=== PATIENT | female | born 1940 | race Caucasian/White ===

== ENCOUNTER → 2017-12-14 | Outpatient (CLI) | payer MEDICARE, OTHER ==
[~2017-12-14] MED LIST: BP MED PO; CITA20 PO; GABA100 PO; Glucophage1000 MG PO; HYDR1TAB94; HYDR1TAB94 PO; IRON150C; IRON325 MG PO; LOSA25 PO; METF500C PO; Mirapex0.125 MG PO; OMEP20ER; PRAM.125 PO; PRAMIPEXOLE DIHY1 MG PO; SITA25T2 PO
[2017-12-14 09:29] LABS: BASOPHILS ABSOLUTE AUTO 0.05 K/mm3 (0.00-0.23); BASOPHILS PERCENT AUTO 1 % (0-2); EOSINOPHILS ABSOLUTE AUTO 0.15 K/mm3 (0.00-0.68); EOSINOPHILS PERCENT AUTO 2 % (0-6); Hematocrit 38.9 % (33.0-51.0); Hemoglobin 11.3 g/dL (11.5-16.0); IMMATURE GRAN ABSOLUTE AUTO 0.07 K/mm3 (0.00-0.10); IMMATURE GRAN PERCENT AUTO 1 % (0-1); LYMPHOCYTES ABSOLUTE AUTO 1.79 K/mm3 (0.84-5.20); LYMPHOCYTES PERCENT AUTO 23 % (21-46); MONOCYTES ABSOLUTE AUTO 0.49 K/mm3 (0.16-1.47); MONOCYTES PERCENT AUTO 6 % (4-13); Mean Corpuscular Volume 72 fL (80-100); NEUTROPHILS PERCENT AUTO 67 % (41-73); Platelet Count 448 K/mm3 (150-400); RDW Coefficient Variation 17.2 % (11.7-14.2); RDW Standard Deviation 43.2 fL (35.1-46.3); Red Blood Cell Count 5.37 M/mm3 (3.80-5.20); White Blood Cell Count 7.75 K/mm3 (4.00-11.30)
[2017-12-14 09:44] LABS: Albumin, Blood 3.1 g/dL (3.4-5.0); Albumin/Globulin Ratio 0.6 (0.8-1.8); Bilirubin, Total 0.3 mg/dL (0.1-1.0); Bun/Creatinine Ratio 15.2 (12.0-20.0); Calcium, Blood 9.4 mg/dL (8.5-10.1); Creatinine, Blood 1.05 mg/dL (0.40-1.00); Free Thyroxine 1.21 ng/dL (0.70-1.60); Globulin, Blood 5.6 g/dL (2.2-4.0); Potassium, Blood 4.6 mmol/L (3.5-5.5); Thyroid Stimulating Hormone 2.581 uIU/mL (0.360-4.800); Total Protein, Blood 8.7 g/dL (6.4-8.2)
[2017-12-14 13:55] LABS: Percent Saturation 5.7 % (15.0-50.0)
== END ==
LOC: LAB SHORT 09:21
PROVIDERS: General Practice
DX: E11.65 Type 2 diabetes mellitus with hyperglycemia (principal); R53.81 Other malaise; D64.9 Anemia, unspecified
CPT/HCPCS: 80053; 83540; 83550; 83880; 84439; 84443; 85025

== ENCOUNTER → 2018-08-19 | Outpatient (CLI) | payer MEDICARE, OTHER | LOC: LAB EV 11:52 → LAB SHORT 11:52 | DX: L02.91 Cutaneous abscess, unspecified (principal) | CPT/HCPCS: 87070; 87075; 87205 ==

== ENCOUNTER 2018-12-14 22:10 | Emergency (ER) | payer MEDICARE, OTHER ==
[~2018-12-14] VITALS: Ht 160 cm; Wt 90.7 kg
[~2018-12-14 22:10] MED LIST changes: +BASAGLAR K100 UNIT/1; +BASAGLAR K100 UNIT/1 SC; +JANUMET XR 50-1 EAC1; +Janumet 50-1,01 EACH PO; +LOSARTAN POTAS100 MG PO; +MELATONIN5 M1 PO; -Mirapex0.125 MG PO; +OMEPRAZOLE MAGN20 MG PO; +SERT50 PO
[2018-12-14 23:05] LABS: Source, Urine Clean Catch
[2018-12-14 23:12] LABS: Bilirubin, Urine Neg (Neg); Blood, Urine 1+ (Neg); Glucose Qualitative, Urine 4+ (Neg); Ketones, Urine Neg (Neg); Leukocyte Esterase, Urine 2+ (Neg); Nitrite, Urine Pos (Neg); Protein, Urine Neg (Neg); Urobilinogen, Urine NORM (Normal)
[2018-12-14 23:19] LABS: Appearance, Urine Clear (Clear); Color, Urine Yellow (P-Yellow)
[2018-12-14 23:20] LABS: Bacteria Mod /hpf; Red Blood Cells, Urine 0-2 /hpf (0-2); Squamous Epithelial Cells Rare /hpf (Few); White Blood Cells, Urine 0-2 /hpf (0-5); Yeast/Fungi Urine Rare /hpf
[2018-12-14] MEDS ORDERED: Neurontin 300300 MG PO (23:48)
[2018-12-14] MEDS ORDERED: PRAMIPEXOLE DIHY1 MG PO (23:48)
[2018-12-15] MEDS ORDERED: Keflex500 MG PO (00:54)
[2018-12-17] MEDS ORDERED: Aspirin EC81 MG PO (16:44)
[2018-12-17] MEDS ORDERED: LIDO700A20 TOP (16:44)
== END 2018-12-15 01:27 | disposition home or self-care (01) ==
LOC: ER 22:10
PROVIDERS: Emergency Medicine
DX: N39.0 Urinary tract infection, site not specified (principal); B37.3 Candidiasis of vulva and vagina; Z79.899 Other long term (current) drug therapy; Z79.4 Long term (current) use of insulin; E11.40 Type 2 diabetes mellitus with diabetic neuropathy, unspecified; K21.9 Gastro-esophageal reflux disease without esophagitis
CPT/HCPCS: 70450; 81001; 87077; 87086; 87186; 99283-25

== ENCOUNTER 2018-12-18 07:28 | Inpatient (IN) | payer MEDICARE, OTHER ==
[~2018-12-18] VITALS: Ht 157.5 cm; Wt 92.0 kg
[~2018-12-18 07:28] MED LIST changes: +Aspirin EC81 MG PO; +Keflex500 MG PO; +LIDO700A20 TOP; +Neurontin 300300 MG PO
[2018-12-18 08:00] LABS: BASOPHILS ABSOLUTE AUTO 0.05 K/mm3 (0.00-0.23); BASOPHILS PERCENT AUTO 1 % (0-2); EOSINOPHILS ABSOLUTE AUTO 0.21 K/mm3 (0.00-0.68); EOSINOPHILS PERCENT AUTO 3 % (0-6); Hematocrit 38.6 % (33.0-51.0); Hemoglobin 11.1 g/dL (11.5-16.0); IMMATURE GRAN ABSOLUTE AUTO 0.03 K/mm3 (0.00-0.10); IMMATURE GRAN PERCENT AUTO 1 % (0-1); LYMPHOCYTES ABSOLUTE AUTO 1.63 K/mm3 (0.84-5.20); LYMPHOCYTES PERCENT AUTO 26 % (21-46); MONOCYTES PERCENT AUTO 10 % (4-13); Mean Corpuscular HGB 22.4 pg (26.0-34.0); Mean Corpuscular HGB Conc 28.8 g/dL (31.5-36.5); Mean Corpuscular Volume 78 fL (80-100); Mean Platelet Volume 11.5 fL (9.1-12.4); NEUTROPHILS ABSOLUTE AUTO 3.68 K/mm3 (1.96-9.15); NEUTROPHILS PERCENT AUTO 59 % (41-73); Platelet Count 289 K/mm3 (150-400); RDW Coefficient Variation 15.3 % (11.7-14.2); RDW Standard Deviation 42.8 fL (35.1-46.3); Red Blood Cell Count 4.95 M/mm3 (3.80-5.20)
[2018-12-18 08:23] LABS: Alanine Aminotransfer (ALT/SGP 22 U/L (12-78); Albumin, Blood 3.1 g/dL (3.4-5.0); Albumin/Globulin Ratio 0.8 (0.8-1.8); Alk Phos 113 U/L (50-136); Anion Gap 8 mmol/L (6-16); Aspartate Aminotrans (AST/SGOT 18 U/L (12-37); Bilirubin, Total 0.2 mg/dL (0.1-1.0); Blood Urea Nitrogen 17 mg/dL (8-24); Bun/Creatinine Ratio 24.8 (12.0-20.0); CO2, Blood 25 mmol/L (21-32); Calcium, Blood 8.4 mg/dL (8.5-10.1); Chloride, Blood 102 mmol/L (98-108); Creatinine, Blood 0.69 mg/dL (0.40-1.00); Ethanol (Alcohol), Blood, Med <3 mg/dL; Glomerular Filtration Rate >60 (60-); Glucose, Blood 527 mg/dL (70-99); Potassium, Blood 4.4 mmol/L (3.5-5.5); Sodium, Blood 135 mmol/L (136-145); Total Protein, Blood 7.1 g/dL (6.4-8.2)
[2018-12-18 08:28] LABS: Base Excess Venous 1.7 mmol/L; Bicarbonate Venous 25.3 mmol/L (24.0-30.0); PCO2 Venous 45.1 mmHg (38-42); PO2 Venous 51.9 mmHg (38-42); pH Blood Venous 7.38 (7.34-7.37)
[2018-12-18 09:55] LABS: Source, Urine Clean Catch
[2018-12-18 10:03] LABS: Bilirubin, Urine Neg (Neg); Blood, Urine 2+ (Neg); Glucose Qualitative, Urine 4+ (Neg); Ketones, Urine 1+ (Neg); Leukocyte Esterase, Urine Neg (Neg); Nitrite, Urine Neg (Neg); Protein, Urine Neg (Neg); Specific Gravity, Urine 1.005 (1.003-1.022); Urobilinogen, Urine NORM (Normal)
[2018-12-18 10:19] LABS: Appearance, Urine Clear (Clear); Color, Urine Yellow (P-Yellow)
[2018-12-18 10:20] LABS: Bacteria Not Seen /hpf; Red Blood Cells, Urine 0-2 /hpf (0-2); Squamous Epithelial Cells Not Seen /hpf (Few); White Blood Cells, Urine Not Seen /hpf (0-5); Yeast/Fungi Urine Not Seen /hpf
[2018-12-18] MEDS ORDERED: PRAMIPEXOLE DIHY1 MG PO (12:40)
[2018-12-18] MEDS ORDERED: METO25ER PO (14:13)
[2018-12-18] MEDS ORDERED: ASPI81CH PO (15:35)
[2018-12-18] MEDS ORDERED: LIDO700A20 TOP (15:36)
--- NOTE | 2018-12-18 18:22 | NUR ---
SHIFT SUMMARY. 1400 PT ADMITTED TO MEDICAL FLOOR VIA GURNEY, PT TRANSFERED TO BED WITH CGA. A&OX4, PT DID HAVE DIFFICULTY WITH WHEN AWOKEN AT ONE POINT ALTHOUGH WAS ABLE TO RECALL WITH PROMPTING. ECHO ORDERED FOR AM. PT HAD TWO FALLS IN THE PAST 3 DAYS, PT REPORTED FALLING ON R SIDE. C/O PAIN TO R RIBS, NO BRUSING OBSERVED. PRN APAP GIVEN WITH GOOD RELIEF. FINE CRACKLES IN L LOWER LOBE, CXR IN AM. PT WITH HEMATOMA TO R FA, SCATTERED BRUISING TO BUE.
--- NOTE | 2018-12-18 19:22 | NUR ---
PT HAD DIFFICUTLY WITH COORDINATION WHILE FEEDING HERSELF DINNER. PT WOULD EAT WITH SPOON IN R HAND AND MISS TO THE RIGHT OF HER MOUTH. PT BECAME TEARFUL AND APPEARED FRIGHTNED WITH THESE SYMPTOMS. THERAPEUTIC COMMUNICATION AND EMOTIONAL SUPPORT GIVEN.
[2018-12-19 05:03] LABS: BASOPHILS ABSOLUTE AUTO 0.05 K/mm3 (0.00-0.23); BASOPHILS PERCENT AUTO 1 % (0-2); EOSINOPHILS ABSOLUTE AUTO 0.24 K/mm3 (0.00-0.68); EOSINOPHILS PERCENT AUTO 3 % (0-6); Hematocrit 37.2 % (33.0-51.0); Hemoglobin 10.8 g/dL (11.5-16.0); IMMATURE GRAN ABSOLUTE AUTO 0.03 K/mm3 (0.00-0.10); IMMATURE GRAN PERCENT AUTO 0 % (0-1); LYMPHOCYTES ABSOLUTE AUTO 2.09 K/mm3 (0.84-5.20); LYMPHOCYTES PERCENT AUTO 29 % (21-46); MONOCYTES ABSOLUTE AUTO 0.65 K/mm3 (0.16-1.47); MONOCYTES PERCENT AUTO 9 % (4-13); Mean Corpuscular HGB 22.4 pg (26.0-34.0); Mean Corpuscular Volume 77 fL (80-100); Mean Platelet Volume 11.9 fL (9.1-12.4); NEUTROPHILS ABSOLUTE AUTO 4.05 K/mm3 (1.96-9.15); NEUTROPHILS PERCENT AUTO 57 % (41-73); Platelet Count 270 K/mm3 (150-400); RDW Coefficient Variation 15.4 % (11.7-14.2); RDW Standard Deviation 42.3 fL (35.1-46.3); Red Blood Cell Count 4.82 M/mm3 (3.80-5.20); White Blood Cell Count 7.11 K/mm3 (4.00-11.30)
[2018-12-19 05:25] LABS: Alanine Aminotransfer (ALT/SGP 22 U/L (12-78); Albumin, Blood 2.9 g/dL (3.4-5.0); Albumin/Globulin Ratio 0.7 (0.8-1.8); Alk Phos 101 U/L (50-136); Anion Gap 8 mmol/L (6-16); Aspartate Aminotrans (AST/SGOT 13 U/L (12-37); Bilirubin, Total 0.4 mg/dL (0.1-1.0); Blood Urea Nitrogen 13 mg/dL (8-24); CO2, Blood 25 mmol/L (21-32); Calcium, Blood 8.3 mg/dL (8.5-10.1); Chloride, Blood 104 mmol/L (98-108); Creatinine, Blood 0.59 mg/dL (0.40-1.00); Glomerular Filtration Rate >60 (60-); Glucose, Blood 352 mg/dL (70-99); Potassium, Blood 3.9 mmol/L (3.5-5.5); Sodium, Blood 137 mmol/L (136-145); Total Protein, Blood 6.9 g/dL (6.4-8.2)
--- NOTE | 2018-12-19 05:52 | NUR ---
SHIFT SUMMARY PT SLEPT WELL T/O NIGHT. AOX2-UNAWARE WHERE IN [place] SHE IS OR THE DATE, STATES SHE GETS PERIODS OF CONFUSION THAT COME & GO WHERE SHE FORGETS THINGS. FOLLOWS DIRECTIONS. DENIES N/V/D OR SOB. REPORTS 9/10 R. RIB/SIDE PAIN FROM FALL @HOME, MEDICATED 2X W/TYLENOL PER ORDERS. 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 PT STATES SHE ALSO HAS EPISODES WHERE "I'M NOT IN CONTROL OF MY R. ARM." I WITNESSED AN EPISODE WHERE PTS HAND APPEARED FROZEN/UNABLE TO MOVE, FINGERS WHERE CLENCHED TOGETHER & PT HAD TO USE OTHER HAND TO MOVE R. ARM. CBG @350 LAST NIGHT, PROVIDED COVERAGE PER ORDERS. CALL LIGHT IN REACH & I WILL CONTINUE TO MONITOR.
--- NOTE | 2018-12-19 16:38 | NUR ---
SHIFT SUMMARY NO ACUTE CHANGES. PATIENT WORKED WITH PT AND OT TODAY. [place] ASSIST [place] [facility] AND FWW. PATIENT MEDICATED X1 FOR PAIN. LIDOCAINE PATCH AND KPAD ALSO IN USE. PATIENT CONTINUES TO HAVE EPISODES OF CONFUSION AND SPASMS IN HER RIGHT ARM AND HAND. DENIES NAUSEA AND SHORTNESS OF BREATH. CALL LIGHT IN REACH, WILL CONTINUE TO MONITOR.
--- NOTE | 2018-12-20 05:29 | NUR ---
Rn summary: Pt has progressively moved better through the shift. She did better with the Ultram and is now sleeping after receiving the Knott 1 tab. Pt has jabbing muscle spasms in her back and RT side with most activity. Pt also reports "episodes" on and off during cares, when getting meds and after getting in and out of bed. They are slight and difficult to discribe. Pt denies dizziness. She does seem to space out a little. No clenching of hands noted. Pt did need O2 2liters bled in her cpap to keep sats in low 90's. Pt voids small amounts when up. Call light is in reach. Kpad to back.
--- NOTE | 2018-12-20 10:11 | NUR ---
SEIZURE PATIENT HAD TONIC CLONIC SEIZURE THIS MORNING DURING SHIFT CHANGE LASTING APPROXIMATELY ONE MINUTE. DR. Aleksandar ALCANTARA INFORMED. NEW ORDERS GIVEN FOR ATIVAN AND EEG.
--- NOTE | 2018-12-20 19:13 | NUR ---
SHIFT SUMMARY PATIENT CONTINUES TO HAVE EPISODES OF RIGHT SIDED SPASMS AND CONFUSION THAT COME AND GO VERY QUICKLY. PATIENT HAS NOT HAD ANY FURTHER TONIC CLONIC SEIZURE TYPE ACTIVITY SINCE SHIFT CHANGE. PATIENT UP TO BSC 1-2 ASSIST W/ GAIT BELT AND FWW. DENIES NAUSEA AND SHORTNESS OF BREATH. EEG COMPLETED. PATIENT WORKED WITH PT/OT TODAY. REPORT GIVEN TO RUBY HOUGH.
[2018-12-21 05:23] LABS: BASOPHILS ABSOLUTE AUTO 0.03 K/mm3 (0.00-0.23); BASOPHILS PERCENT AUTO 0 % (0-2); EOSINOPHILS ABSOLUTE AUTO 0.23 K/mm3 (0.00-0.68); EOSINOPHILS PERCENT AUTO 3 % (0-6); Hematocrit 38.7 % (33.0-51.0); Hemoglobin 10.9 g/dL (11.5-16.0); IMMATURE GRAN ABSOLUTE AUTO 0.02 K/mm3 (0.00-0.10); IMMATURE GRAN PERCENT AUTO 0 % (0-1); LYMPHOCYTES ABSOLUTE AUTO 2.08 K/mm3 (0.84-5.20); LYMPHOCYTES PERCENT AUTO 27 % (21-46); MONOCYTES ABSOLUTE AUTO 0.79 K/mm3 (0.16-1.47); MONOCYTES PERCENT AUTO 10 % (4-13); Mean Corpuscular HGB 22.4 pg (26.0-34.0); Mean Corpuscular HGB Conc 28.2 g/dL (31.5-36.5); Mean Platelet Volume 12.2 fL (9.1-12.4); NEUTROPHILS ABSOLUTE AUTO 4.68 K/mm3 (1.96-9.15); NEUTROPHILS PERCENT AUTO 60 % (41-73); Platelet Count 273 K/mm3 (150-400); RDW Coefficient Variation 15.7 % (11.7-14.2); RDW Standard Deviation 44.8 fL (35.1-46.3); Red Blood Cell Count 4.86 M/mm3 (3.80-5.20); White Blood Cell Count 7.83 K/mm3 (4.00-11.30)
[2018-12-21 05:33] LABS: Mean Corpuscular Volume 80 fL (80-100)
[2018-12-21 05:49] LABS: Alanine Aminotransfer (ALT/SGP 17 U/L (12-78); Albumin, Blood 2.8 g/dL (3.4-5.0); Albumin/Globulin Ratio 0.7 (0.8-1.8); Alk Phos 98 U/L (50-136); Anion Gap 4 mmol/L (6-16); Aspartate Aminotrans (AST/SGOT 11 U/L (12-37); Bilirubin, Total 0.3 mg/dL (0.1-1.0); Blood Urea Nitrogen 15 mg/dL (8-24); Bun/Creatinine Ratio 24.9 (12.0-20.0); CO2, Blood 29 mmol/L (21-32); Calcium, Blood 8.7 mg/dL (8.5-10.1); Chloride, Blood 104 mmol/L (98-108); Globulin, Blood 4.2 g/dL (2.2-4.0); Glomerular Filtration Rate >60 (60-); Glucose, Blood 191 mg/dL (70-99); Magnesium, Blood 1.8 mg/dL (1.6-2.4); Potassium, Blood 4.2 mmol/L (3.5-5.5); Sodium, Blood 137 mmol/L (136-145)
--- NOTE | 2018-12-21 07:19 | NUR ---
Rn summary: Patient is alert, appropriate, cooperative. She does get anxious about rt rib pain when getting up. Pt has voided very little tonight but bladder scan shows 130 cc. Pt has been medicated for back and rib pain x2 with norco with good relief. Pt has slept with cpap on with 2 liters O@ sats above 90%. Dr. Parham called and reported pt had positive EEG. He called Hospitalist Hector and he ordered Keppra IV which pt received. Pt has had less little "episodes" this shift. Call light in reach. Report to oncoming RN given.
--- NOTE | 2018-12-21 19:32 | NUR ---
PT AOX4 AND COOPERATIVE OF CARE. PT HAS HAD A LOT OF PAIN IN R RIB AREA. TREATED FOR PAIN PER EMAR. PT DOING WELL WITH TRANSFERS AND IS A ONE PERSON WITH GAIT BELT TO BEDSIDE COMMODE. PT RESTING WELL AT THIS TIME.
--- NOTE | 2018-12-22 06:48 | NUR ---
SHIFT SUMMARY PT A/O. C/O PAIN X2 AND MEDICATED PER EMAR. SBA TO BSC AND INCONT. VERY SORE PAINFUL WHEN MOVING. SHE WAS ABLE TO SLEEP T/O NIGHT. CALL LIGHT IN REACH.
--- NOTE | 2018-12-22 17:06 | NUR ---
PT AOX4 AND COOPERATIVE OF CARE. NO SIGNS OF SIEZURES TODAY AND PT HAS NOT REPORTED ANY ODD FEELINGS. PT DOES CONTINUE TO HAVE CHEST AND RIB PAIN WHICH IS TREATED PER EMAR. PT IS A ONE PERSON WITH GAIT BELT TO BEDSIDE COMODE. WILL CONTINUE TO MONITOR.
[2018-12-23 04:41] LABS: BASOPHILS ABSOLUTE AUTO 0.03 K/mm3 (0.00-0.23); BASOPHILS PERCENT AUTO 0 % (0-2); EOSINOPHILS ABSOLUTE AUTO 0.23 K/mm3 (0.00-0.68); EOSINOPHILS PERCENT AUTO 3 % (0-6); Hematocrit 34.9 % (33.0-51.0); Hemoglobin 10.1 g/dL (11.5-16.0); IMMATURE GRAN ABSOLUTE AUTO 0.05 K/mm3 (0.00-0.10); IMMATURE GRAN PERCENT AUTO 1 % (0-1); LYMPHOCYTES ABSOLUTE AUTO 1.66 K/mm3 (0.84-5.20); LYMPHOCYTES PERCENT AUTO 20 % (21-46); MONOCYTES ABSOLUTE AUTO 0.75 K/mm3 (0.16-1.47); MONOCYTES PERCENT AUTO 9 % (4-13); Mean Corpuscular HGB 23.1 pg (26.0-34.0); Mean Corpuscular HGB Conc 28.9 g/dL (31.5-36.5); Mean Corpuscular Volume 80 fL (80-100); NEUTROPHILS ABSOLUTE AUTO 5.46 K/mm3 (1.96-9.15); NEUTROPHILS PERCENT AUTO 67 % (41-73); Platelet Count 281 K/mm3 (150-400); RDW Coefficient Variation 15.5 % (11.7-14.2); RDW Standard Deviation 44.4 fL (35.1-46.3); Red Blood Cell Count 4.38 M/mm3 (3.80-5.20); White Blood Cell Count 8.18 K/mm3 (4.00-11.30)
--- NOTE | 2018-12-23 07:04 | NUR ---
SHIFT SUMMARY NO SZ ACTIVITY NOTED. C/O PAIN IN R RIBS AND MEDICATED PER EMAR X3. SBA TO BSC PAIN WORSE C MOVEMENT. WEARING 2L O2, TRIED ON RA BUT DESATED SO PUT BACK ONTO 2L O2 NC. SHE SAID SHE WASN'T ABLE TO SLEEP WELL LIKE SHE DID THE PREVIOUS NIGHT. REPORT GIVEN TO DAY RN.
--- NOTE | 2018-12-23 14:45 | NUR ---
PT'S SON PT GAVE PERMISSION FOR HER SON NOEMÍ LEOS TO GET INFORMATION OVER THE PHONE, HE CALLED TO CHECK ON HER, HE ASKED TO BE CALLED IF THERE IS ANY CHANGES,
--- NOTE | 2018-12-23 17:20 | NUR ---
SUMMARY PT SITTING UP IN THE CHAIR AT THE BEDSIDE, PT HAS WORKED WITH PT/OT TODAY, PT HAS BEEN MED PER EMAR FOR PAIN, VSS, NO ACUTE CHANGES, WILL CONT TO MONITOR
[2018-12-24 05:48] LABS: Anion Gap 6 mmol/L (6-16); Blood Urea Nitrogen 16 mg/dL (8-24); Bun/Creatinine Ratio 26.9 (12.0-20.0); CO2, Blood 29 mmol/L (21-32); Calcium, Blood 8.9 mg/dL (8.5-10.1); Chloride, Blood 102 mmol/L (98-108); Glomerular Filtration Rate >60 (60-); Glucose, Blood 153 mg/dL (70-99); Potassium, Blood 4.3 mmol/L (3.5-5.5); Sodium, Blood 137 mmol/L (136-145)
--- NOTE | 2018-12-24 06:42 | NUR ---
SUMMARY: A/OX4, SPECIFIES NEEDS AND IS 1P ASSIST TO BSC. PT REPORTS PAIN TO BACK AND SIDE W/MOBILITY SO RECIEVED NORCO PRN FOR TOLERABLE CONTROL. BRUISES OBSERVED TO RIBS FROM SEIZURES/FALLS AT HOME. NO SEIZURE ACTIVITY OBSERVED AND KEPPRA RCIEVED PER EMAR. PT REMAINS NSR W/BBB AND 1ST BLOCK. UNABLE TO TITRATE O2 AND REMAINS ON 2L W/CONT BIOX INTACT. NO ACUTE CHANGES, VSS/AFEBRILE. WCTM AND REPORT TO DAY RN.
--- NOTE | 2018-12-24 17:03 | NUR ---
SUMMARY PT SITTING UP IN THE CHAIR AT THE BEDSIDE, PT HAS BEEN UP TO THE CHAIR SEVERAL TIMES TODAY, PT HAS BEEN PLEASANT AND COOPERATIVE WITH CARE, MED PER EMAR FOR PAIN, VSS, NO ACUTE CHANGES, WILL CONT TO MONITOR
--- NOTE | 2018-12-25 06:25 | NUR ---
SUMMARY: A/OX4, SPECIFIES NEED AND SBA REQUIRED OOB. SHE USED BSC OFTEN T/O NOCTE AND CONT'S TO REPORT PAIN W/MOBILITY. NORCO RECIEVED PRN FOR TOLERABLE CONTROL AND BRUISES FROM FALL/SEIZURES SEEM TO BE IMPROVING. CONT BIOX IS INTACT W/SPO2 WNL ON 2L O2. NO ACUTE CHANGES, VSS/AFEBRILE. LIKELY D/C TO [facility] TODAY. WCTM AND REPORT TO DAY RN.
--- NOTE | 2018-12-25 17:14 | NUR ---
PT AOX4 AND COOPERATIVE OF CARE. PT DOING WELL CONTINUE TO HAVE R RIB PAIN AND TREATED PER EMAR. PT WAS ABLE TO AMBULATE WITH PHYSICAL THERAPY TODAY TO RESTROOM. PT STATED IT WAS HARD AND SHE HURT A BIT, BUT WAS ABLE TO GET IT DONE. PT HAS BEEN UP TO CHAIR AND IS A ONE PERSON ASSIST. WILL CONTINUE TO MONITOR.
--- NOTE | 2018-12-26 04:23 | NUR ---
SHIFT SUMMARY: 78 Y/O FEMALE RESTED COMFORTABLY ALL SHIFT. PT ABLE TO PIVOT AND TRANSFER VIA WALKER ONTO BSC X 1 STANDBY ASSIST. PTS BALANCE AND EQUILIBRUM POOR. PT ALERT AND ORIENTED X 3, ABLE TO TAKE ALL MEDS VIA APPLESAUCE. PT HAPPY AND COOPERATIVE. PTS TENTAVTIVELY AWAITING PLACEMENT AT LOCAL LTC FACILITY. PTS BED ALARM APPLIED, BED LOW POSITION, CALL LIGHT AT SIDE. PT DENIES NAUSEA. PT HAD BACK PAIN RATED 6/10 AND WAS MEDICATED WITH NORCO 5/325 TWICE THIS SHIFT WITH RELIEF FELT.
[2018-12-26] MEDS ORDERED: LEVE500 PO (16:02)
[2018-12-26] MEDS ORDERED: METF500 PO (16:02)
[2018-12-26] MEDS ORDERED: Keppra750 MG PO (16:04)
[2018-12-26] MEDS ORDERED: Pedi-Dri 100,0060 GM TOP (16:06)
[2018-12-26] MEDS ORDERED: ACET325 PO (16:06)
[2018-12-26] MEDS ORDERED: Colace100 MG PO (16:07)
[2018-12-26] MEDS ORDERED: ALOGLIPTIN6.25 MG PO (16:07)
[2018-12-26] MEDS ORDERED: Norco 5-325 Ta1 EACH PO (16:08)
[2018-12-26] MEDS ORDERED: ENOX40I SC (16:08)
[2018-12-26] MEDS ORDERED: Humalog100 UNIT/3 SC (16:10)
[2018-12-26] MEDS ORDERED: Humalog100 UNIT/1 SC (16:11)
--- NOTE | 2018-12-26 18:36 | NUR ---
PT TRANSFERED TO [facility] AT [address] [facility] IN A WHEELCHAIR. PT AOX4 AND COOPERATIVE OF CARE. TREATED FOR R RIB PAIN PER EMAR TODAY. 1 PERSON ASSIST FOR TRANSFERS. NO DISTRESS NOTED. 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 REPORT CALLED PRIOR TO TRANSFER.
== END 2018-12-26 18:14 | DRG 101 ==
LOC: ER 07:28 → ERHOLD 07:29 → MEDS 13:48
PROVIDERS: Physician Assistant; Student in an Organized Health Care Education/Training Program; ADMIT Family Medicine
DX: G40.209 Localization-related (focal) (partial) symptomatic epilepsy and epileptic syndromes with complex partial seizures, not intractable, without status epilepticus (principal); S22.41XA Multiple fractures of ribs, right side, initial encounter for closed fracture; Z79.82 Long term (current) use of aspirin; E11.65 Type 2 diabetes mellitus with hyperglycemia; K21.9 Gastro-esophageal reflux disease without esophagitis; E11.42 Type 2 diabetes mellitus with diabetic polyneuropathy; Z79.4 Long term (current) use of insulin; M19.90 Unspecified osteoarthritis, unspecified site; E78.5 Hyperlipidemia, unspecified; G25.81 Restless legs syndrome; I10 Essential (primary) hypertension; Z91.14 Patient's other noncompliance with medication regimen; E86.9 Volume depletion, unspecified; R62.7 Adult failure to thrive; Z68.36 Body mass index [BMI] 36.0-36.9, adult; E66.01 Morbid (severe) obesity due to excess calories; S20.219A Contusion of unspecified front wall of thorax, initial encounter; R09.02 Hypoxemia; G89.29 Other chronic pain; Z86.73 Personal history of transient ischemic attack (TIA), and cerebral infarction without residual deficits; Z99.81 Dependence on supplemental oxygen; W18.30XA Fall on same level, unspecified, initial encounter; Z91.81 History of falling; Y93.9 Activity, unspecified; Y92.9 Unspecified place or not applicable
CPT/HCPCS: 36415; 70450; 70496; 70498; 70553; 71045; 71046; 72070; 72125; 80048; 80053; 81001; 82803; 82947; 83735; 84484; 85025; 93005; 93010; 93306; 94660; 94667; 94762; 95819; 96360; 97110; 97162; 97166; 97530; 97535; 99285-25; A9270; A9270-GY; A9577; G0378; G0480; J0696; J1650; J1815; J1953; J2060; J7030; J7050; J7120; P9612; Q9967

== ENCOUNTER → 2019-03-03 | Outpatient (CLI) | payer MEDICARE, OTHER ==
[~2019-03-03] MED LIST changes: +ACET325 PO; +ALOGLIPTIN6.25 MG PO; +ASPI81CH PO; +Colace100 MG PO; +ENOX40I SC; +Humalog100 UNIT/1 SC; +Humalog100 UNIT/3 SC; +Keppra750 MG PO; +LEVE500 PO; +METF500 PO; +METO25ER PO; +Norco 5-325 Ta1 EACH PO; +Pedi-Dri 100,0060 GM TOP
[2019-03-03 13:07] LABS: BASOPHILS ABSOLUTE AUTO 0.05 K/mm3 (0.00-0.23); BASOPHILS PERCENT AUTO 1 % (0-2); EOSINOPHILS ABSOLUTE AUTO 0.26 K/mm3 (0.00-0.68); EOSINOPHILS PERCENT AUTO 4 % (0-6); Hematocrit 39.3 % (33.0-51.0); Hemoglobin 11.6 g/dL (11.5-16.0); IMMATURE GRAN ABSOLUTE AUTO 0.04 K/mm3 (0.00-0.10); IMMATURE GRAN PERCENT AUTO 1 % (0-1); LYMPHOCYTES ABSOLUTE AUTO 1.52 K/mm3 (0.84-5.20); LYMPHOCYTES PERCENT AUTO 22 % (21-46); MONOCYTES ABSOLUTE AUTO 0.81 K/mm3 (0.16-1.47); MONOCYTES PERCENT AUTO 12 % (4-13); Mean Corpuscular HGB 23.9 pg (26.0-34.0); Mean Corpuscular HGB Conc 29.5 g/dL (31.5-36.5); Mean Corpuscular Volume 81 fL (80-100); Mean Platelet Volume 11.7 fL (9.1-12.4); NEUTROPHILS ABSOLUTE AUTO 4.23 K/mm3 (1.96-9.15); NEUTROPHILS PERCENT AUTO 61 % (41-73); Platelet Count 366 K/mm3 (150-400); RDW Standard Deviation 49.9 fL (35.1-46.3); Red Blood Cell Count 4.85 M/mm3 (3.80-5.20); White Blood Cell Count 6.91 K/mm3 (4.00-11.30)
[2019-03-03 13:18] LABS: Alanine Aminotransfer (ALT/SGP 23 U/L (12-78); Albumin, Blood 3.3 g/dL (3.4-5.0); Albumin/Globulin Ratio 0.7 (0.8-1.8); Alk Phos 145 U/L (40-126); Anion Gap 6 mmol/L (6-16); Aspartate Aminotrans (AST/SGOT 19 U/L (12-37); Bilirubin, Total 0.2 mg/dL (0.1-1.0); Blood Urea Nitrogen 11 mg/dL (8-24); Bun/Creatinine Ratio 13.1 (12.0-20.0); CO2, Blood 30 mmol/L (21-32); Calcium, Blood 8.6 mg/dL (8.5-10.1); Chloride, Blood 100 mmol/L (98-108); Creatinine, Blood 0.84 mg/dL (0.40-1.00); Glomerular Filtration Rate >60 (60-); Glucose, Blood 193 mg/dL (70-99); Sodium, Blood 136 mmol/L (136-145); Total Protein, Blood 8.3 g/dL (6.4-8.2)
== END | disposition home or self-care (01) ==
LOC: LAB EV 13:03 → LAB SHORT 13:03
PROVIDERS: General Practice
DX: R05 Cough (principal)
CPT/HCPCS: 80053; 85025

== ENCOUNTER → 2019-07-31 | Outpatient (CLI) | payer MEDICARE, OTHER ==
[2019-07-31 15:33] LABS: BASOPHILS ABSOLUTE AUTO 0.04 K/mm3 (0.00-0.23); BASOPHILS PERCENT AUTO 1 % (0-2); EOSINOPHILS ABSOLUTE AUTO 0.18 K/mm3 (0.00-0.68); EOSINOPHILS PERCENT AUTO 2 % (0-6); Hematocrit 37.6 % (33.0-51.0); IMMATURE GRAN ABSOLUTE AUTO 0.05 K/mm3 (0.00-0.10); IMMATURE GRAN PERCENT AUTO 1 % (0-1); LYMPHOCYTES ABSOLUTE AUTO 1.96 K/mm3 (0.84-5.20); LYMPHOCYTES PERCENT AUTO 24 % (21-46); MONOCYTES PERCENT AUTO 9 % (4-13); Mean Corpuscular HGB 22.4 pg (26.0-34.0); Mean Corpuscular HGB Conc 29.3 g/dL (31.5-36.5); Mean Corpuscular Volume 76 fL (80-100); Mean Platelet Volume 10.9 fL (9.1-12.4); NEUTROPHILS PERCENT AUTO 64 % (41-73); Platelet Count 336 K/mm3 (150-400); RDW Coefficient Variation 16.4 % (11.7-14.2); RDW Standard Deviation 44.4 fL (35.1-46.3); Red Blood Cell Count 4.92 M/mm3 (3.80-5.20); White Blood Cell Count 8.13 K/mm3 (4.00-11.30)
[2019-07-31 16:00] LABS: Albumin, Blood 3.2 g/dL (3.4-5.0); Albumin/Globulin Ratio 0.7 (0.8-1.8); Bilirubin, Total 0.2 mg/dL (0.1-1.0); Bun/Creatinine Ratio 13.8 (12.0-20.0); Calcium, Blood 8.6 mg/dL (8.5-10.1); Creatinine, Blood 0.94 mg/dL (0.40-1.00); Globulin, Blood 4.5 g/dL (2.2-4.0); Potassium, Blood 4.3 mmol/L (3.5-5.5); Total Protein, Blood 7.7 g/dL (6.4-8.2)
== END ==
LOC: LAB SHORT 15:27 → LAB EV 15:27
PROVIDERS: Physician Assistant
DX: R10.9 Unspecified abdominal pain (principal)
CPT/HCPCS: 80053; 83690; 85025

== ENCOUNTER 2019-08-30 16:50 | Emergency (ER) | payer MEDICARE, OTHER ==
[~2019-08-30] VITALS: Ht 160 cm; Wt 93.0 kg
[2019-08-30 17:16] LABS: BASOPHILS ABSOLUTE AUTO 0.05 K/mm3 (0.00-0.23); BASOPHILS PERCENT AUTO 1 % (0-2); EOSINOPHILS ABSOLUTE AUTO 0.19 K/mm3 (0.00-0.68); EOSINOPHILS PERCENT AUTO 2 % (0-6); Hematocrit 38.1 % (33.0-51.0); IMMATURE GRAN ABSOLUTE AUTO 0.06 K/mm3 (0.00-0.10); IMMATURE GRAN PERCENT AUTO 1 % (0-1); LYMPHOCYTES ABSOLUTE AUTO 2.57 K/mm3 (0.84-5.20); LYMPHOCYTES PERCENT AUTO 26 % (21-46); MONOCYTES ABSOLUTE AUTO 0.83 K/mm3 (0.16-1.47); MONOCYTES PERCENT AUTO 8 % (4-13); Mean Corpuscular HGB 22.1 pg (26.0-34.0); Mean Corpuscular HGB Conc 28.9 g/dL (31.5-36.5); Mean Corpuscular Volume 77 fL (80-100); Mean Platelet Volume 11.5 fL (9.1-12.4); NEUTROPHILS ABSOLUTE AUTO 6.15 K/mm3 (1.96-9.15); NEUTROPHILS PERCENT AUTO 63 % (41-73); Platelet Count 348 K/mm3 (150-400); RDW Coefficient Variation 16.9 % (11.7-14.2); RDW Standard Deviation 46.8 fL (35.1-46.3); Red Blood Cell Count 4.97 M/mm3 (3.80-5.20); White Blood Cell Count 9.85 K/mm3 (4.00-11.30)
[2019-08-30 17:35] LABS: Anion Gap 8 mmol/L (6-16); Blood Urea Nitrogen 15 mg/dL (8-24); CO2, Blood 23 mmol/L (21-32); Calcium, Blood 8.4 mg/dL (8.5-10.1); Chloride, Blood 102 mmol/L (98-108); Glucose, Blood 417 mg/dL (70-99); Sodium, Blood 133 mmol/L (136-145)
[2019-08-30 17:41] LABS: Alanine Aminotransfer (ALT/SGP 19 U/L (12-78); Albumin/Globulin Ratio 0.6 (0.8-1.8); Alk Phos 100 U/L (50-136); Aspartate Aminotrans (AST/SGOT 15 U/L (12-37); Bilirubin, Total 0.2 mg/dL (0.1-1.0); Bun/Creatinine Ratio 23.5 (12.0-20.0); Creatinine, Blood 0.64 mg/dL (0.40-1.00); Globulin, Blood 4.9 g/dL (2.2-4.0); Glomerular Filtration Rate >60 (60-); Total Protein, Blood 7.9 g/dL (6.4-8.2)
[2019-08-30] MEDS ORDERED: Aspirin EC81 MG PO (19:56)
== END 2019-08-30 20:38 | disposition home or self-care (01) ==
LOC: ER 16:50
PROVIDERS: Emergency Medicine
DX: F45.8 Other somatoform disorders (principal); E11.40 Type 2 diabetes mellitus with diabetic neuropathy, unspecified; K21.9 Gastro-esophageal reflux disease without esophagitis; Z79.4 Long term (current) use of insulin; Z79.899 Other long term (current) drug therapy
CPT/HCPCS: 70450; 80053; 85025; 93005; 93010; 99284-25; A9270-GY

== ENCOUNTER → 2020-04-29 | Outpatient (CLI) | payer MEDICARE, OTHER ==
[2020-05-01 10:11] LABS: Stool Occult Bld Immuno 1 Negative (NEGATIVE)
== END | disposition home or self-care (01) ==
LOC: LAB SHORT 14:00 → LAB 14:00
PROVIDERS: Internal Medicine
DX: D50.9 Iron deficiency anemia, unspecified (principal)
CPT/HCPCS: 82274

== ENCOUNTER → 2020-05-06 | Outpatient (CLI) | payer MEDICARE, OTHER ==
[2020-05-06 22:21] LABS: Candida species (DNA Probe) Positive (NEGATIVE); G. vaginalis (DNA Probe) Positive (NEGATIVE); T. vaginalis (DNA Probe) Negative (NEGATIVE)
== END | disposition home or self-care (01) ==
LOC: PLD 16:56 → LAB SHORT 16:56
PROVIDERS: Family Medicine
DX: N76.0 Acute vaginitis (principal)
CPT/HCPCS: 87480; 87510; 87660

== ENCOUNTER → 2020-09-16 | Outpatient (CLI) | payer MEDICARE, OTHER ==
[2020-09-16 12:21] LABS: Source, Urine Clean Catch
[2020-09-16 16:09] LABS: White Blood Cells, Urine 50-100 /hpf (0-5)
[2020-09-16 16:10] LABS: Bacteria Many /hpf; Red Blood Cells, Urine 0-2 /hpf (0-2); Squamous Epithelial Cells Mod /hpf (Few); Yeast/Fungi Urine Many /hpf
[2020-09-17 11:21] LABS: G. vaginalis (DNA Probe) Positive (NEGATIVE); T. vaginalis (DNA Probe) Negative (NEGATIVE)
[2020-09-17 11:22] LABS: Candida species (DNA Probe) Positive (NEGATIVE)
== END | disposition home or self-care (01) ==
LOC: LAB SHORT 11:05 → LAB 11:05
PROVIDERS: Family Medicine
DX: B37.3 Candidiasis of vulva and vagina (principal); R30.9 Painful micturition, unspecified; L30.4 Erythema intertrigo
CPT/HCPCS: 81015; 87077; 87086; 87106; 87186; 87480; 87510; 87660

== ENCOUNTER 2022-03-22 05:24 | Emergency (ER) | payer MEDICARE, OTHER ==
[~2022-03-22] VITALS: Ht 160 cm; Wt 72.6 kg
[2022-03-22 06:08] LABS: BASOPHILS ABSOLUTE AUTO 0.06 K/mm3 (0.00-0.23); BASOPHILS PERCENT AUTO 1 % (0-2); EOSINOPHILS ABSOLUTE AUTO 0.15 K/mm3 (0.00-0.68); EOSINOPHILS PERCENT AUTO 2 % (0-6); Hematocrit 45.4 % (33.0-51.0); IMMATURE GRAN ABSOLUTE AUTO 0.04 K/mm3 (0.00-0.10); IMMATURE GRAN PERCENT AUTO 1 % (0-1); LYMPHOCYTES ABSOLUTE AUTO 1.94 K/mm3 (0.84-5.20); LYMPHOCYTES PERCENT AUTO 28 % (21-46); MONOCYTES ABSOLUTE AUTO 0.71 K/mm3 (0.16-1.47); MONOCYTES PERCENT AUTO 10 % (4-13); Mean Corpuscular HGB 28.7 pg (26.0-34.0); Mean Corpuscular Volume 87 fL (80-100); Mean Platelet Volume 11.5 fL (9.1-12.4); NEUTROPHILS ABSOLUTE AUTO 3.98 K/mm3 (1.96-9.15); NEUTROPHILS PERCENT AUTO 58 % (41-73); Platelet Count 245 K/mm3 (150-400); RDW Coefficient Variation 12.3 % (11.7-14.2); RDW Standard Deviation 39.5 fL (35.1-46.3); Red Blood Cell Count 5.23 M/mm3 (3.80-5.20); White Blood Cell Count 6.88 K/mm3 (4.00-11.30)
[2022-03-22 06:30] LABS: Albumin, Blood 3.3 g/dL (3.4-5.0); Albumin/Globulin Ratio 0.8 (0.8-1.8); Bilirubin, Total 0.6 mg/dL (0.1-1.0); Bun/Creatinine Ratio 24.8 (12.0-20.0); Calcium, Blood 8.9 mg/dL (8.5-10.1); Creatinine, Blood 0.53 mg/dL (0.40-1.00); Potassium, Blood 3.9 mmol/L (3.5-5.5); Total Protein, Blood 7.3 g/dL (6.4-8.2)
[2022-03-22 08:46] LABS: Source, Urine Clean Catch
[2022-03-22 08:49] LABS: Bilirubin, Urine Neg (Neg); Blood, Urine 1+ (Neg); Glucose Qualitative, Urine 4+ (Neg); Ketones, Urine 2+ (Neg); Leukocyte Esterase, Urine 2+ (Neg); Nitrite, Urine Pos (Neg); Protein, Urine 1+ (Neg); Urobilinogen, Urine NORM (Normal)
[2022-03-22 08:55] LABS: Appearance, Urine Hazy (Clear); Color, Urine Yellow (P-Yellow)
[2022-03-22 08:56] LABS: Bacteria Mod /hpf; Squamous Epithelial Cells Rare /hpf (Few); Yeast/Fungi Urine Few /hpf
[2022-03-22] MEDS ORDERED: CEFP200 PO (09:43)
[2022-03-22] MEDS ORDERED: TRAM50 PO (09:44)
== END 2022-03-22 10:44 | disposition home or self-care (01) ==
LOC: ER 05:24
PROVIDERS: Emergency Medicine
DX: R10.9 Unspecified abdominal pain (principal); Z79.84 Long term (current) use of oral hypoglycemic drugs; E11.40 Type 2 diabetes mellitus with diabetic neuropathy, unspecified; K21.9 Gastro-esophageal reflux disease without esophagitis
CPT/HCPCS: 71045; 80053; 81001; 84484; 85025; 87077; 87086; 87186; 93005; 93010; 96365; 96375; 99284-25; J0696; J2405; J3010

== ENCOUNTER 2022-04-03 21:28 | Inpatient (IN) | payer MEDICARE, OTHER ==
[~2022-04-03] VITALS: Ht 160 cm; Wt 74.4 kg
[~2022-04-03 21:28] MED LIST changes: +CEFP200 PO; +TRAM50 PO
[2022-04-03 21:40] LABS: BASOPHILS ABSOLUTE AUTO 0.05 K/mm3 (0.00-0.23); BASOPHILS PERCENT AUTO 1 % (0-2); EOSINOPHILS ABSOLUTE AUTO 0.14 K/mm3 (0.00-0.68); EOSINOPHILS PERCENT AUTO 2 % (0-6); Hematocrit 44.5 % (33.0-51.0); Hemoglobin 14.8 g/dL (11.5-16.0); IMMATURE GRAN ABSOLUTE AUTO 0.03 K/mm3 (0.00-0.10); IMMATURE GRAN PERCENT AUTO 0 % (0-1); LYMPHOCYTES ABSOLUTE AUTO 2.69 K/mm3 (0.84-5.20); LYMPHOCYTES PERCENT AUTO 32 % (21-46); MONOCYTES ABSOLUTE AUTO 0.77 K/mm3 (0.16-1.47); MONOCYTES PERCENT AUTO 9 % (4-13); Mean Corpuscular HGB 28.6 pg (26.0-34.0); Mean Corpuscular HGB Conc 33.3 g/dL (31.5-36.5); Mean Corpuscular Volume 86 fL (80-100); Mean Platelet Volume 12.2 fL (9.1-12.4); NEUTROPHILS ABSOLUTE AUTO 4.84 K/mm3 (1.96-9.15); NEUTROPHILS PERCENT AUTO 57 % (41-73); Platelet Count 244 K/mm3 (150-400); RDW Standard Deviation 40.2 fL (35.1-46.3); Red Blood Cell Count 5.18 M/mm3 (3.80-5.20); White Blood Cell Count 8.52 K/mm3 (4.00-11.30)
[2022-04-03 21:58] LABS: Albumin/Globulin Ratio 0.8 (0.8-1.8); Bilirubin, Total 0.2 mg/dL (0.1-1.0); Bun/Creatinine Ratio 25.2 (12.0-20.0); Creatinine, Blood 0.75 mg/dL (0.40-1.00); Globulin, Blood 3.9 g/dL (2.2-4.0); Potassium, Blood 3.9 mmol/L (3.5-5.5); Total Protein, Blood 6.9 g/dL (6.4-8.2)
[2022-04-03 23:10] LABS: Anti-Xa UFH, PHA Monitoring <0.10 IU/mL; D-Dimer, Quantitative 4.73 mg/L FEU (0.00-0.52); International Normalized Ratio 1.06; Prothrombin Time Results 11.1 Sec (9.7-11.5)
[2022-04-03 23:12] LABS: Source, Urine Clean Catch
[2022-04-03 23:14] LABS: Bilirubin, Urine Neg (Neg); Blood, Urine 1+ (Neg); Glucose Qualitative, Urine 4+ (Neg); Ketones, Urine 1+ (Neg); Leukocyte Esterase, Urine 2+ (Neg); Nitrite, Urine Neg (Neg); Protein, Urine 1+ (Neg); Urobilinogen, Urine NORM (Normal)
[2022-04-03 23:17] LABS: Influenza A, PCR NEGATIVE (NEGATIVE); Influenza B, PCR NEGATIVE (NEGATIVE); Resp Syncytial Virus, PCR NEGATIVE (NEGATIVE); SARS-Cov-2 (COVID-19) PCR, MMC NEGATIVE (NEGATIVE)
[2022-04-03 23:33] LABS: Appearance, Urine Hazy (Clear); Color, Urine Yellow (P-Yellow)
[2022-04-03 23:34] LABS: Bacteria Few /hpf; Red Blood Cells, Urine 0-2 /hpf (0-2); Squamous Epithelial Cells Few /hpf (Few); Yeast/Fungi Urine Many /hpf
[2022-04-04] MEDS ORDERED: METF500 PO (00:57)
--- NOTE | 2022-04-04 04:18 | NUR ---
ASSUMED PT CARE AT 0325 PT IS ALERT AND ORIENTED AND ABLE TO MAKE HER NEEDS KNOWN. PT ADMITTED D/T SADDLE PE. CURRENTLY ON A HEPARIN GTT AT 15 UNITS/KG/HR. DENIES SOB. LUNG SOUNDS CLEAR/DIMINISHED. CURRENTLY ON 4L OF OXYGEN VIA NC; BASELINE IS ROOM AIR. PT INDEPENDENT WITH ADL'S; EDUCATED REGARDING CALLING FOR ASSISTANCE FOR TRANSFERS D/T IV TUBING AND VITAL SIGN CORDS. PT DEMONSTRATED UNDERSTANDING. PT IS VERY PLEASANT AND COOPERATIVE WITH CARES. SPEAKS IN COMPLETE SENTENCES. DENIES SOB WHILE LYING FLAT OR WITH ANY EXERTION. CALL LIGHT IS WITHIN REACH
--- NOTE | 2022-04-04 05:31 | NUR ---
END OF SHIFT SUMMARY PT IS CURRENTLY SLEEPING. NO SIGNIFICANT CHANGES SINCE START OF SHIFT. PT REMAINS ON 4L OF OXYGEN VIA NC WITH SPO2 95%. VSS, SEE FLOWSHEET. WILL CONTINUE TO MONITOR UNTIL REPORT IS HANDED OFF TO ONCOMING RN.
[2022-04-04 07:40] LABS: BASOPHILS ABSOLUTE AUTO 0.04 K/mm3 (0.00-0.23); BASOPHILS PERCENT AUTO 1 % (0-2); EOSINOPHILS ABSOLUTE AUTO 0.12 K/mm3 (0.00-0.68); EOSINOPHILS PERCENT AUTO 2 % (0-6); Hematocrit 44.2 % (33.0-51.0); Hemoglobin 14.4 g/dL (11.5-16.0); IMMATURE GRAN ABSOLUTE AUTO 0.04 K/mm3 (0.00-0.10); IMMATURE GRAN PERCENT AUTO 1 % (0-1); LYMPHOCYTES ABSOLUTE AUTO 3.07 K/mm3 (0.84-5.20); LYMPHOCYTES PERCENT AUTO 43 % (21-46); MONOCYTES ABSOLUTE AUTO 0.63 K/mm3 (0.16-1.47); MONOCYTES PERCENT AUTO 9 % (4-13); Mean Corpuscular HGB 28.2 pg (26.0-34.0); Mean Corpuscular HGB Conc 32.6 g/dL (31.5-36.5); Mean Corpuscular Volume 87 fL (80-100); Mean Platelet Volume 12.2 fL (9.1-12.4); NEUTROPHILS ABSOLUTE AUTO 3.18 K/mm3 (1.96-9.15); NEUTROPHILS PERCENT AUTO 45 % (41-73); Platelet Count 196 K/mm3 (150-400); RDW Standard Deviation 40.8 fL (35.1-46.3); Red Blood Cell Count 5.11 M/mm3 (3.80-5.20); White Blood Cell Count 7.08 K/mm3 (4.00-11.30)
[2022-04-04 07:57] LABS: Bun/Creatinine Ratio 24.5 (12.0-20.0); Calcium, Blood 8.5 mg/dL (8.5-10.1); Creatinine, Blood 0.57 mg/dL (0.40-1.00)
--- NOTE | 2022-04-04 08:00 | NUR ---
INITIAL ASSESSMENT PATIENT ALERT AND ORIENTED X 4. PATIENT AFEBRILE. PATIENT DENIES PAIN/ DISCOMFORT. PATIENT SBA TO BS; GOOD STRENGTH. PATIENT RA AT HOME. PATIENT SATTING 90% AND GREATER ON 4 L NC. LUNGS CLEAR IN UPPER LOBES AND DIMINISHED IN LOWER LOBES. PATIENT IN SR, HR IN THE 80S. SBP 130S TO 150S. GI WNL. PATIENT ON ADA DIET. LAST BM 2 DAYS AGO. WNL. SKIN APPEARS WNL. HEPARIN DRIP INFUSING AT 15 UNITS/ KG/ HOUR. BLOOD SUGAR [address] HAMMOND IN TO SEE PATIENT THIS AM. SLIDING SCALE INSULIN INCREASED FROM LSS TO CARLOS. NO OTHER ORDERS RECEIVED AT THIS TIME. BED LOW, CALL LIGHT IN REACH. WILL CONTINUE TO MONITOR PATIENT FREQUENTLY THROUGHOUT SHIFT.
--- NOTE | 2022-04-04 12:00 | NUR ---
PATIENT AFEBRILE. HR IN THE 90S. SBP 120S TO 140S. BLOOD SUGAR 337; COVERAGE GIVEN. NO OTHER ACUTE CHANGES TO NOTE ON AT THIS TIME. WILL CONTINUE TO MONITOR.
--- NOTE | 2022-04-04 16:00 | NUR ---
HR IN THE 80S. SBP IN THE 150S. PATIENT SATTING 90% AND GREATER ON 2 L NC. NO OTHER ACUTE CHANGES TO NOTE ON AT THIS TIME. WILL CONTINUE TO MONITOR.
--- NOTE | 2022-04-04 17:34 | NUR ---
SHIFT SUMMARY PATIENT REMAINED ALERT AND ORIENTED X 4, AFEBRILE. NO COMPLAINTS OF PAIN THIS SHIFT. PATIENT REMAINED SBA TO BSC; TOLERATED WELL. PATIENT DECREASED FROM 4 L NC TO 2 L NC THIS SHIFT. NO COMPLAINTS OR SIGNS OF SOB THIS SHIFT. PATIENT REMAINED SR. HR AND BP STABLE. NO BM THIS SHIFT. PATIENT TOLERATING ADA DIET WELL AND HAS GOOD APPETITE. BLOOD SUGARS 304, 337 AND 261 THIS SHIFT. WNL. NO CHANGES TO SKIN NOTED. PATIENT REPOSITIONING SELF IN BED. PATIENT DID NOT WANT BEDBATH THIS SHIFT. HEPARIN REMAINS INFUSING AT 15 UNITS/ KG/ HOUR. ECHO PERFORMED THIS SHIFT. PATIENT WILL BE TRANSFERRED TO PCU, ROOM 17 SHORTLY.
[2022-04-05 04:24] LABS: Hematocrit 39.7 % (33.0-51.0); Hemoglobin 12.9 g/dL (11.5-16.0); Mean Corpuscular HGB 28.7 pg (26.0-34.0); Mean Corpuscular HGB Conc 32.5 g/dL (31.5-36.5); Mean Corpuscular Volume 88 fL (80-100); Mean Platelet Volume 12.9 fL (9.1-12.4); Platelet Count 179 K/mm3 (150-400); RDW Standard Deviation 42.3 fL (35.1-46.3)
[2022-04-05 04:46] LABS: Albumin, Blood 2.6 g/dL (3.4-5.0); Albumin/Globulin Ratio 0.8 (0.8-1.8); Bilirubin, Total 0.3 mg/dL (0.1-1.0); Bun/Creatinine Ratio 27.3 (12.0-20.0); Calcium, Blood 8.8 mg/dL (8.5-10.1); Creatinine, Blood 0.62 mg/dL (0.40-1.00); Globulin, Blood 3.4 g/dL (2.2-4.0)
--- NOTE | 2022-04-05 04:50 | NUR ---
PT ALERT AND ORIENTED X4, BP AND HR STABLE, AFEBRILE, ON 2L NC SATING >94% THROUGHOUT THE NIGHT. CBG 373 THIS EVENING, CALL PLACED TO MD, NEW ORDERS RECEIVED, SEE EMAR. PT SBA TO BSC, NO BM THIS SHIFT.PT DID NOT COMPLAIN OF SOB OR CP THROUGHOUT THE NIGHT. HEPARIN GTT AT 15 U/KG/HR. PT REPOS IND IN BED. ABLE TO MAKE NEEDS KNOWN. PT CURRENTLY IN BED SLEEPING, CALL LIGHT IN REACH. WILL REPORT TO ONCOMING RN.
--- NOTE | 2022-04-05 17:28 | NUR ---
SHIFT SUMMARY PT REMAINS ALERT AND ORIENTED. VS STABLE. O2 SATS HAVE REMAINED ABOVE 90% ON 2L NC. HR HAS REMAINED NSR. PT HAS DENIED ANY PAIN. PT ABLE TO AMBULATE TO COMMODE INDEPENDENTLY. HEP GTT INFUSING PER ORDERS. WILL CONTINUE TO MONITOR AND REPORT TO ONCOMING RN
--- NOTE | 2022-04-06 05:27 | NUR ---
ABSTRACT MANAGER SUMMARY PT IS ALERT AND COMMUNICATING APPROPRIATELY. PT O2 SATS >90% ON 1-2L NC THIS SHIFT. PT REMAINED MILDLY HYPERTENSIVE THIS SHIFT. TELE SHOWING SR 80'S-90'S THIS SHIFT. PT ABLE TO SLEEP COMFORTABLY FOR MAJORITY OF THE NIGHT. WILL REPORT TO ONCOMING RN.
--- NOTE | 2022-04-06 09:23 | NUR ---
0800 ASSUME CARE PATIENT ALERT AND ORIENTED PABLO HOWEVER ONE PERSON ASSIST WHEN OUT OF BED DUE TO CORDS AND GENERALIZED WEAKNESS. PATIENT ON A HEPARIN DRIP DUE TO PE ADJUSTED BY PHARMACY. LUNG SOUNDS CLEAR T/O, ABD SOFT NON TENDER WITH + BT X 4 QUAD. ONE PERIPHERAL IV TO LEFT FA DRESSING INTACT SITE WITH HEPARIN RUNNING INTO IT. PATIENT DOES NOT COMPLAIN OF PAIN AT THIS TIME. DECLINED BATHROOM USE AT THIS TIME, WINDOW CURTAIN OPEN PER PT REQUEST. DR BROWN AT BEDSIDE THIS AM DISCUSSING PLAN OF CARE. GLUCOSE WAS 303 AND INSULIN COVERAGE GIVEN ALONG WITH ANOTHER DOSE OF GLARGINE DUE TO NEW ORDERS THIS AM. WILL CONTINUE ASSESSMENT AND CARE...
--- NOTE | 2022-04-06 13:44 | NUR ---
NOON ASSESSMENT PATIENT AWAKING SITTING IN BED BUT OUT OF BED ON HER OWN AT TIMES TO BEDSIDE COMMODE. VOIDING WITHOUT DIFFICULTY AND IS NOT SHORT OF BREATH WITH ACTIVITY. SHE IS ENCOURAGE TO TAKE DEEP BREATHS AND BE IN GOOD SNIFF POSITION WHEN SLEEPING OR AT REST DUE TO HER OXYGENATION DROPPING TO 89% WITHOUT OXYGEN ON. PATIENT EATTING WELL AND GLUCOSE STILL IN 300'S AT THIS TIME, COVERAGE GIVEN WITH HSS NOW. HEPARIN DRIP STILL GOING AT CURRENT RATE OF 17 UNIT/KG/HR. WILL CONTINUE TO FOLLOW AND TREAT DIRECTED. NO NEW ACUTE NEEDS AT THIS TIME.
--- NOTE | 2022-04-06 17:36 | NUR ---
END OF SHIFT NOTE: VIANEY HAS HAD A GOOD DAY. SHE WAS OUT OF BED TO BS A FEW TIMES TODAY AND UP IN RECLINER FOR A WHILE. SHE REALLY WANTS TO AMBULATE THE HALLS BUT DOESN'T WANT TO DRAG STUFF WITH HER SO SHE IS WAITING TILL HEPARIN IS DC'D. SHE IS EATTING HER MEALS WITHOUT DIFFICULTY. HER GLUCOSE WAS BELOW 200 AT DINNER TIME, NEW REGIMINE HELPING THUS FAR. SHE SAW HER NIECE TODAY FOR A SHORT TIME AND GOT A CALL FROM A FRIEND. PATIENT HOPING TO BE DC FROM HOSPITAL TOMORROW. NO NEW ACUTE CONCERNS TODAY, SHE IS BREATHING WITH EASE AND HAVING NO PAIN TO STATE. WILL GIVE REPORT TO NEXT SHIFT TO RESUME CARE.
--- NOTE | 2022-04-07 04:56 | NUR ---
SHIFT SUMMARY PATIENT A&O X4. DENIES CHEST PAIN/PRESSURE AND SOB. PATIENT ON 1L NC DURING NIGHT WHILE SLEEPING TO MAINTAIN O2 SATS >92%. HEPARIN GTT DISCONTINUED AT BEGINNING OF SHIFT AND ORAL ANTICOAGULATION STARTED. BP STABLE THROUGHOUT SHIFT. DYSPNEA NOTED BY THIS RN WITH ACTIVITY. PATIENT ABLE TO MANAGE ADL'S INDEPENDENTLY. ABLE TO MAKE NEEDS KNOWN. LFA IV PATENT. NO ACUTE CHANGES DURING THIS SHIFT. ST NOTED WITH EXERTION WITH HR IN THE 100S, OTHERWISE HR IN THE 80S. BED IN LOWEST POSITION AND CALL LIGHT WITHIN REACH. WILL CONTINUE TO MONITOR UNTIL SHIFT CHANGE AT 0700.
[2022-04-07] MEDS ORDERED: INSULANPEN SC (12:21)
[2022-04-07] MEDS ORDERED: LOSA25 PO (12:22)
[2022-04-07] MEDS ORDERED: ELIQUIS5 M2 PO (13:41)
== END 2022-04-07 15:30 | disposition home or self-care (01) | DRG 175 ==
LOC: ER 21:28 → ERHOLD 04-04 00:51 → ICUE 04-04 00:51 → PCU 04-04 17:55
PROVIDERS: Emergency Medicine; Internal Medicine; ADMIT Internal Medicine
DX: I26.02 Saddle embolus of pulmonary artery with acute cor pulmonale (principal); I21.A1 Myocardial infarction type 2; J96.91 Respiratory failure, unspecified with hypoxia; E11.65 Type 2 diabetes mellitus with hyperglycemia; I10 Essential (primary) hypertension; K21.9 Gastro-esophageal reflux disease without esophagitis; Z86.73 Personal history of transient ischemic attack (TIA), and cerebral infarction without residual deficits; Z20.822 Contact with and (suspected) exposure to COVID-19; G47.33 Obstructive sleep apnea (adult) (pediatric); F32.9 Major depressive disorder, single episode, unspecified; I26.94 Multiple subsegmental thrombotic pulmonary emboli without acute cor pulmonale; E11.40 Type 2 diabetes mellitus with diabetic neuropathy, unspecified; Z88.8 Allergy status to other drugs, medicaments and biological substances; E78.5 Hyperlipidemia, unspecified; F41.9 Anxiety disorder, unspecified; F32.A Depression, unspecified; G25.81 Restless legs syndrome; Z98.890 Other specified postprocedural states; Z79.899 Other long term (current) drug therapy; Z79.84 Long term (current) use of oral hypoglycemic drugs
CPT/HCPCS: 0241U; 36415; 71045; 71260; 80048; 80053; 81001; 82947; 83036; 84484; 85025; 85027; 85379; 85520; 85610; 85730; 87086; 93005; 93010; 93306; 94762; 96365; 96366; 99285-25; A9270; J1644; J1815; Q9967

== ENCOUNTER 2022-06-07 22:34 | Observation (INO) | payer MEDICARE, OTHER ==
[~2022-06-07] VITALS: Ht 167.6 cm; Wt 77.0 kg
[~2022-06-07 22:34] MED LIST changes: +ELIQUIS5 M2 PO; +INSULANPEN SC
[2022-06-07 23:21] LABS: BASOPHILS ABSOLUTE AUTO 0.07 K/mm3 (0.00-0.23); BASOPHILS PERCENT AUTO 1 % (0-2); EOSINOPHILS ABSOLUTE AUTO 0.18 K/mm3 (0.00-0.68); EOSINOPHILS PERCENT AUTO 2 % (0-6); Hematocrit 42.1 % (33.0-51.0); Hemoglobin 13.6 g/dL (11.5-16.0); IMMATURE GRAN ABSOLUTE AUTO 0.04 K/mm3 (0.00-0.10); IMMATURE GRAN PERCENT AUTO 0 % (0-1); LYMPHOCYTES ABSOLUTE AUTO 2.28 K/mm3 (0.84-5.20); LYMPHOCYTES PERCENT AUTO 23 % (21-46); MONOCYTES ABSOLUTE AUTO 0.92 K/mm3 (0.16-1.47); MONOCYTES PERCENT AUTO 9 % (4-13); Mean Corpuscular HGB 28.5 pg (26.0-34.0); Mean Corpuscular HGB Conc 32.3 g/dL (31.5-36.5); Mean Corpuscular Volume 88 fL (80-100); Mean Platelet Volume 11.2 fL (9.1-12.4); NEUTROPHILS ABSOLUTE AUTO 6.47 K/mm3 (1.96-9.15); NEUTROPHILS PERCENT AUTO 65 % (41-73); Platelet Count 253 K/mm3 (150-400); RDW Coefficient Variation 13.3 % (11.7-14.2); RDW Standard Deviation 43.3 fL (35.1-46.3); Red Blood Cell Count 4.77 M/mm3 (3.80-5.20); White Blood Cell Count 9.96 K/mm3 (4.00-11.30)
[2022-06-07] MEDS ORDERED: XARELTO20 MG PO (23:26)
[2022-06-07 23:45] LABS: Albumin, Blood 3.1 g/dL (3.4-5.0); Albumin/Globulin Ratio 0.7 (0.8-1.8); Bilirubin, Total 0.2 mg/dL (0.1-1.0); Bun/Creatinine Ratio 22.8 (12.0-20.0); Calcium, Blood 8.7 mg/dL (8.5-10.1); Creatinine, Blood 0.79 mg/dL (0.40-1.00); Globulin, Blood 4.2 g/dL (2.2-4.0); Magnesium, Blood 1.8 mg/dL (1.6-2.4); Thyroid Stimulating Hormone 1.95 uIU/mL (0.360-4.800); Total Protein, Blood 7.3 g/dL (6.4-8.2)
[2022-06-08 00:18] LABS: Source, Urine Clean Catch
[2022-06-08 00:20] LABS: Bilirubin, Urine Neg (Neg); Blood, Urine 1+ (Neg); Glucose Qualitative, Urine Neg (Neg); Ketones, Urine Neg (Neg); Leukocyte Esterase, Urine 2+ (Neg); Nitrite, Urine Pos (Neg); Protein, Urine Neg (Neg); Specific Gravity, Urine 1.025 (1.003-1.022); Urobilinogen, Urine NORM (Normal)
[2022-06-08 00:31] LABS: Appearance, Urine Hazy (Clear); Color, Urine Yellow (P-Yellow)
[2022-06-08 00:32] LABS: Bacteria Mod /hpf; Red Blood Cells, Urine 0-2 /hpf (0-2); Squamous Epithelial Cells Few /hpf (Few); Yeast/Fungi Urine Few /hpf
[2022-06-08 00:52] LABS: Influenza A, PCR NEGATIVE (NEGATIVE); Influenza B, PCR NEGATIVE (NEGATIVE); Resp Syncytial Virus, PCR NEGATIVE (NEGATIVE); SARS-Cov-2 (COVID-19) PCR, MMC NEGATIVE (NEGATIVE)
[2022-06-08 06:13] LABS: BASOPHILS ABSOLUTE AUTO 0.05 K/mm3 (0.00-0.23); BASOPHILS PERCENT AUTO 1 % (0-2); EOSINOPHILS ABSOLUTE AUTO 0.14 K/mm3 (0.00-0.68); EOSINOPHILS PERCENT AUTO 2 % (0-6); Hematocrit 42.1 % (33.0-51.0); Hemoglobin 13.9 g/dL (11.5-16.0); IMMATURE GRAN ABSOLUTE AUTO 0.02 K/mm3 (0.00-0.10); IMMATURE GRAN PERCENT AUTO 0 % (0-1); LYMPHOCYTES ABSOLUTE AUTO 2.95 K/mm3 (0.84-5.20); LYMPHOCYTES PERCENT AUTO 37 % (21-46); MONOCYTES ABSOLUTE AUTO 0.69 K/mm3 (0.16-1.47); MONOCYTES PERCENT AUTO 9 % (4-13); Mean Corpuscular HGB 28.4 pg (26.0-34.0); Mean Corpuscular Volume 86 fL (80-100); NEUTROPHILS PERCENT AUTO 52 % (41-73); Platelet Count 220 K/mm3 (150-400); RDW Coefficient Variation 13.2 % (11.7-14.2); RDW Standard Deviation 41.7 fL (35.1-46.3); Red Blood Cell Count 4.89 M/mm3 (3.80-5.20); White Blood Cell Count 8.05 K/mm3 (4.00-11.30)
[2022-06-08 06:32] LABS: Alanine Aminotransfer (ALT/SGP 20 U/L (12-78); Albumin, Blood 2.9 g/dL (3.4-5.0); Albumin/Globulin Ratio 0.7 (0.8-1.8); Alk Phos 67 U/L (50-136); Anion Gap 6 mmol/L (6-16); Aspartate Aminotrans (AST/SGOT 23 U/L (12-37); Bilirubin, Total 0.3 mg/dL (0.1-1.0); Blood Urea Nitrogen 18 mg/dL (8-24); Bun/Creatinine Ratio 24.8 (12.0-20.0); CO2, Blood 27 mmol/L (21-32); Calcium, Blood 8.5 mg/dL (8.5-10.1); Chloride, Blood 107 mmol/L (98-108); Cholesterol 179 mg/dL (50-200); Creatinine, Blood 0.73 mg/dL (0.40-1.00); Globulin, Blood 4.1 g/dL (2.2-4.0); Glomerular Filtration Rate 83 (60-); Glucose, Blood 138 mg/dL (70-99); HDL Cholesterol 45 mg/dL (>39); LDL/HDL RATIO 2.4; Low Density Lipoprotein Chol 107 mg/dL (0-110); Sodium, Blood 140 mmol/L (136-145); Triglycerides 136 mg/dL (30-160); Very Low Density Lipoprot Chol 27 mg/dL (6-32)
--- NOTE | 2022-06-08 06:42 | NUR ---
A/OX4; CALM AND COOPERATIVE. ARRIVED AT END OF SHIFT FROM ED. ORIENTED TO ROOM/UNIT. PLACED ON TELEMETRY. NO WOUNDS FOUND ON SKIN CHECK WITH [employer] WORK[employer]. PROBABLE UTI. CAME INTO ED WITH C/O DIZZINESS AND RECIEVED MECLAZINE. HTN WITH ADMISSION VITALS (174/85). DIABETIC, LAST CBG 180. BED ALARM SET, CALL LIGHT IN REACH; ENCOURAGED TO MAKE NEEDS KNOWN.
[2022-06-08] MEDS ORDERED: Aspir 8181 MG PO (15:40)
[2022-06-08] MEDS ORDERED: Cefpodoxime Pr200 MG PO (15:40)
--- NOTE | 2022-06-08 20:00 | NUR ---
SHIFT SUMMARY PT AWAKE DURING SHIFT REPORT. A&O, PLEASANT AND CO-OP. PT ADMITTED FOR POSSIBLE TIA/STROKE AFTER C/O DIZZINESS; ALSO POSSIBLE UTI. HEAD CT AND MRI DONE EARLY. PT WAS UP INDEPENDENTLY IN AND TO [facility]. LIVES AT HOME WITH HER SISTER. ABLE TO WORK WITH THERAPY. DR HAMMOND IN TO SEE PT AND DISCUSS PLAN OF CARE. PT TO HAVE ZIO PATCH PLACED PRIOR TO D/C HOME. [facility]RT [facility]ENTER NOTIFIED AND TO TO PLACE. MEDS FAXED TO PHARMACY, PER PT REQUEST. PT UNABLE TO OBTAIN PO ABX TONIGHT D/T PHARMACY CLOSING. ONE TIME DOSE GIVEN PER EMAR FOR TONIGHTS DOSE. D/C INSTRUCTIONS REVIEWED WITH PT; VERBALIZED UNDERSTANDING. PT ASSISTED OUT TO SISTER'S CAR VIA W/C WHEN READY.
== END 2022-06-08 16:55 | disposition home health service (06) ==
LOC: ER 22:34 → MEDS 22:35
PROVIDERS: Family Medicine; Student in an Organized Health Care Education/Training Program; ADMIT Family Medicine
DX: G45.9 Transient cerebral ischemic attack, unspecified (principal); E11.9 Type 2 diabetes mellitus without complications; Z20.822 Contact with and (suspected) exposure to COVID-19; N39.0 Urinary tract infection, site not specified; I26.99 Other pulmonary embolism without acute cor pulmonale; K21.9 Gastro-esophageal reflux disease without esophagitis; Z88.8 Allergy status to other drugs, medicaments and biological substances
CPT/HCPCS: 0241U; 36415; 70450; 70551; 80053; 80061; 81001; 82947; 83735; 84443; 84484; 85025; 85730; 87077; 87086; 87186; 90686; 93005; 93010; 93246; 93880; 96374; 97110; 97161; 97165; 97530; 99285-25; A9270; G0008; G0378; J0696; J1815

== ENCOUNTER → 2022-10-21 | Outpatient (CLI) | payer MEDICARE, OTHER ==
[~2022-10-21] MED LIST changes: +Aspir 8181 MG PO; +Cefpodoxime Pr200 MG PO; +XARELTO20 MG PO
[2022-10-21 13:32] LABS: BASOPHILS ABSOLUTE AUTO 0.06 K/mm3 (0.00-0.23); BASOPHILS PERCENT AUTO 1 % (0-2); EOSINOPHILS ABSOLUTE AUTO 0.19 K/mm3 (0.00-0.68); EOSINOPHILS PERCENT AUTO 2 % (0-6); Hematocrit 40.7 % (33.0-51.0); Hemoglobin 13.6 g/dL (11.5-16.0); IMMATURE GRAN ABSOLUTE AUTO 0.03 K/mm3 (0.00-0.10); IMMATURE GRAN PERCENT AUTO 0 % (0-1); LYMPHOCYTES ABSOLUTE AUTO 2.73 K/mm3 (0.84-5.20); LYMPHOCYTES PERCENT AUTO 30 % (21-46); MONOCYTES ABSOLUTE AUTO 0.76 K/mm3 (0.16-1.47); MONOCYTES PERCENT AUTO 8 % (4-13); Mean Corpuscular HGB 28.4 pg (26.0-34.0); Mean Corpuscular HGB Conc 33.4 g/dL (31.5-36.5); Mean Corpuscular Volume 85 fL (80-100); Mean Platelet Volume 11.3 fL (9.1-12.4); NEUTROPHILS ABSOLUTE AUTO 5.44 K/mm3 (1.96-9.15); NEUTROPHILS PERCENT AUTO 59 % (41-73); Platelet Count 280 K/mm3 (150-400); RDW Coefficient Variation 12.9 % (11.7-14.2); RDW Standard Deviation 40.3 fL (35.1-46.3); Red Blood Cell Count 4.79 M/mm3 (3.80-5.20); White Blood Cell Count 9.21 K/mm3 (4.00-11.30)
[2022-10-21 13:47] LABS: Albumin, Blood 3.3 g/dL (3.4-5.0); Albumin/Globulin Ratio 0.8 (0.8-1.8); Bilirubin, Total 0.3 mg/dL (0.1-1.0); Bun/Creatinine Ratio 15.6 (12.0-20.0); Creatinine, Blood 0.96 mg/dL (0.40-1.00); Globulin, Blood 4.3 g/dL (2.2-4.0); Potassium, Blood 4.6 mmol/L (3.5-5.5); Total Protein, Blood 7.6 g/dL (6.4-8.2)
== END | disposition home or self-care (01) ==
LOC: LAB 13:28 → LAB SHORT 13:28
PROVIDERS: Emergency Medicine
DX: N39.0 Urinary tract infection, site not specified (principal); R73.9 Hyperglycemia, unspecified
CPT/HCPCS: 80053; 85025; 87077; 87086; 87186